=== PATIENT | female | born 1980 | race Caucasian/White ===

== ENCOUNTER 2017-10-20 11:22 | Emergency (ER) | payer OTHER, SELFPAY ==
[2017-10-20 11:33] VITALS: BP 95/72; PULSE 73; RESP 16; TEMP 37; O2SAT 100
[2017-10-20 11:44] LABS: Bilirubin Negative (Negative); Blood Trace-intact (Negative); Clarity Clear; Glucose Negative (Negative); Ketones Negative (Negative); Leukocyte Esterase Negative (Negative); Nitrite Positive (Negative); Specific Gravity 1.025 (1.005-1.025)
[2017-10-20 11:55] LABS: Bacteria Moderate HPF (Negative); C & S Indicated? Yes; Casts Negative LPF (Negative); Crystals Negative HPF (Negative); Epithelial Cells Few HPF (Negative); Mucus Moderate (Negative); RBC 0-2 (0-2); WBC 0-2 HPF (0-5)
[2017-10-20] MEDS: Normal Saline 1,000 ML 1000 ML IV (12:00)
[2017-10-20 12:05] LABS: Abs Immature Grans 0.02 k/cumm (0.0-0.09); Absolute Basophil Count 0.02 k/cumm (0.0-0.2); Absolute Eosinophil Count 0.04 k/cumm (0.0-0.7); Absolute Lymphocyte Count 1.69 k/cumm (1.2-3.4); Absolute Monocyte Count 0.51 k/cumm (0.11-0.7); Absolute Neutrophil Count 2.99 k/cumm (1.2-6.7); Basophils % 0.4; Eosinophils % 0.8; HCT 40.6 % (36.0-46.0); HGB 13.9 g/dL (12.0-15.5); Immature Grans % 0.4; Lymphocytes % 32.1; Mean Corp. HGB Concentration 34.2 g/dL (32.0-36.0); Mean Corpuscular Hemoglobin 31.8 pg (27.0-33.0); Mean Corpuscular Volume 92.9 fL (80-95); Mean Platelet Volume 10.3 fL (8.0-11.0); Monocytes % 9.7; Neutrophils % 56.6; Platelet Count 255 x1000/uL (130-400); RBC 4.37 m/cumm (4.00-5.20); RBC Distribution Width 13.6 % (11.7-14.6); White Blood Cell Count 5.27 k/cumm (4.4-10.8)
[2017-10-20 12:24] LABS: Troponin I < 0.02 ng/mL (0.00-0.06)
[2017-10-20 12:26] LABS: ALT 31 U/L (12-78); AST 24 U/L (15-37); Albumin 3.5 g/dL (3.4-5.0); Alkaline Phosphatase 106 U/L (46-116); Anion Gap 7.1 mmol/L (3-11); BUN 5 mg/dL (7-18); Bilirubin, Total 0.3 mg/dL (0.2-1.0); CO2 28.9 mmol/L (21.0-32.0); CREATININE 0.78 mg/dL (0.55-1.02); Calcium 9.1 mg/dL (8.5-10.1); Chloride 103 mmol/L (98-107); Glucose 95 mg/dL (70-100); Potassium 3.4 mmol/L (3.5-5.1); Sodium 139 mmol/L (136-145); Total Protein 7.2 g/dL (6.4-8.2)
--- NOTE | 2017-10-20 12:28 | DI.RPTCT_ITS ---
SYMPTOMS/DIAGNOSIS: RIGHT LOWER QUADRANT PAIN WITH PELVIC PAIN AND PRESSURE CT SCAN OF THE ABDOMEN AND PELVIS: CT scan of the abdomen and pelvis was performed following the uneventful administration of intravenous contrast material. There are no priors for comparison. The visualized lung bases are clear. The liver is normal in size. No evidence of a hepatic mass is seen. The gallbladder is negative by CT criteria. There is no biliary ductal dilatation. The portal and superior mesenteric veins are patent. The pancreas and peripancreatic soft tissues are unremarkable, as are the spleen and adrenal glands. The kidneys show normal and symmetric enhancement. No evidence of a solid renal mass or obstruction. The urinary bladder is intact. There are round masses seen in the uterus, most consistent with uterine fibroids. There is a 2.2 cm right adnexal cyst, likely ovarian in origin. There is a trace amount of free fluid in the cul-de-sac, which is likely physiologic. The bowel shows no evidence of obstruction or inflammation. A normal appendix is seen in the right lower quadrant (series 6 images [id number]). No pneumoperitoneum is seen. No significant abdominal or pelvic adenopathy is present. The bones are intact. IMPRESSION: 1. No CT findings to suggest acute appendicitis. 2. A 2.2 cm right adnexal cyst, likely ovarian. A trace amount of free fluid in the pelvis, which is likely physiologic. These findings were discussed with Dr. Blum of the Emergency Department on the date of the examination.
[2017-10-20] MEDS: Omnipaque 350 MG/ML 100 ML BTL 67 ML IJ (12:38)
--- NOTE | 2017-10-20 12:49 | ED.GENADUL ---
Disposition Disposition: HOME Condition: Good Instructions: Urinary Tract Infection in Women (ED) Additional Instructions: Please take the medication as directed. Please drink 8-10 cups of water per day. If you notice any worsening of your symptoms, or any new symptoms such as vomiting, diarrhea, fever, chills, shortness of breath, chest pain, numbness, weakness, or fainting , please return immediately to the emergency department for reevaluation. Please follow up with your primary care provider as soon as possible for reassessment and reevaluation. As always, it was a pleasure participating in your medical care today. Prescriptions: Cephalexin [Keflex] 500 mg PO BID #14 cap Medical Decision Making - Lab Data POC Urine Test Start: 10/20/17 11:44 Freq: .Urine Test Status: Complete Document 10/20/17 11:44 MMQ (Rec: 10/20/17 11:44 MMQ [id number]) Test(Urine)-POC POC- Test(urine) Negative Laboratory Tests 10/20/17 10/20/17 10/20/17 11:35 11:55 11:55 WBC 5.27 RBC 4.37 Hgb 13.9 Hct 40.6 MCV 92.9 MCH 31.8 MCHC 34.2 RDW 13.6 Plt Count 255 MPV 10.3 Immature Gran % 0.4 Neutrophils % 56.6 Lymphocytes % 32.1 Monocytes % 9.7 Eosinophils % 0.8 Basophils % 0.4 Absolute Neutrophils 2.99 Absolute Lymphocytes 1.69 Absolute Monocytes 0.51 Absolute Eosinophils 0.04 Absolute Basophils 0.02 Sodium 139 Potassium 3.4 L Chloride 103 Carbon Dioxide 28.9 Anion Gap 7.1 BUN 5 L Creatinine 0.78 Estimated GFR/1.73 m2 >= 60.00 Glucose 95 Calcium 9.1 Total Bilirubin 0.3 AST 24 ALT 31 Alkaline Phosphatase 106 Troponin I Total Protein 7.2 Albumin 3.5 Urine Color Yellow Urine Clarity Clear Urine pH 7.0 Ur Specific [place] 1.025 Urine Protein 100 H Urine Ketones Negative Urine Blood Trace-intact H Urine Nitrite Positive H Urine Bilirubin Negative Urine Urobilinogen 1.0 H Ur Leukocyte Esterase Negative Urine RBC 0-2 Urine WBC 0-2 Ur Epithelial Cells Few Urine Crystals Negative Urine Bacteria Moderate Urine Casts Negative Urine Mucus Moderate Ur Culture Indicated? Yes Urine Glucose Negative 10/20/17 11:55 WBC RBC Hgb Hct MCV MCH MCHC RDW Plt Count MPV Immature Gran % Neutrophils % Lymphocytes % Monocytes % Eosinophils % Basophils % Absolute Neutrophils Absolute Lymphocytes Absolute Monocytes Absolute Eosinophils Absolute Basophils Sodium Potassium Chloride Carbon Dioxide Anion Gap BUN Creatinine Estimated GFR/1.73 m2 Glucose Calcium Total Bilirubin AST ALT Alkaline Phosphatase Troponin I < 0.02 Total Protein Albumin Urine Color Urine Clarity Urine pH Ur Specific [place] Urine Protein Urine Ketones Urine Blood Urine Nitrite Urine Bilirubin Urine Urobilinogen Ur Leukocyte Esterase Urine RBC Urine WBC Ur Epithelial Cells Urine Crystals Urine Bacteria Urine Casts Urine Mucus Ur Culture Indicated? Urine Glucose - Medical Decision Making This is a pleasant 37-year-old female who presents with somewhat vague symptoms of increased urinary frequency chills, sweats, mild lightheadedness, mild bilateral flank pain, and some dizziness for the last 4 days. Point of care test is negative. Physical exam demonstrates no significant abnormalities, no evidence of significant abdominal pain on palpation. She does take oral contraceptives, but has had no vaginal discharge, bleeding or history of STDs. Patient's urinalysis appears relatively benign, with a very small amount of WBCs and RBCs, however there is also is evidence of positive nitrates. No signs of significant infection. Laboratory workup is also relatively benign. We have rehydrated patient we will reassess. EKG 12: 02 Rate 66, WV 160, QTc 419, QRS 82. No ST elevations or depressions. Inverted T-wave in V1 V2. No signs of Q waves. The remainder of the patient's laboratory workup has returned. I do feel that the urinalysis may be indicative of a mild urinary tract infection. I have been contacted by the radiologist, who is reviewed the CT scan which he states: Does show evidence of a small right ovarian cyst, small amount of physiologic free fluid, but no other acute abnormalities, no signs of appendicitis or urolithiasis. Patient will be given a prescription for antibiotic for her UTI, we have discussed red flags which returned the patient understands. I have extensively reviewed the treatment plan and discharge instructions with the patient. I have addressed all patient concerns at this time. The patient was made aware of what symptoms to monitor for that would warrant a return to the emergency department. Discussed the plan with the patient, they demonstrate verbal understanding and agreement with our assessment and plan at this time. History of Present Illness - General Chief complaint: Urinary Stated complaint: UNKNOWN Time Seen by Provider: 10/20/17 11:23 - History of Present Illness Initial comments: This is a pleasant 37-year-old female with no significant past medical history who presents today for weakness, bilateral flank pain, mild dizziness for the past 4 days. She also notes increase in urinary frequency, as well as mild chills and sweats. She denies any cough, chest pain, vomiting, diarrhea, numbness, tingling, hematochezia, melena, acholic stool, hematemesis, or hematuria. She denies any history of pyelonephritis. She does admit to previous urinary tract infections. She denies any vaginal discharge, or vaginal bleeding. She does take an oral contraceptive. She denies any history of kidney stones or family history of kidney stones. She denies any history of significant ovarian cyst. She denies any significant past surgical history. She denies any IV illicit drug use. She has no other complaints at this time. - Related Data Cephalexin [Keflex] 500 mg PO BID #14 cap 10/20/17 LORazepam [Ativan] 1 mg PO PRN 10/20/17 Lisdexamfetamine Dimesylate [Vyvanse] 50 mg PO .MON-FRI 10/20/17 Allergies Allergy/AdvReac Type Severity Reaction Status Date / Time acetaminophen Allergy Mild Hives Unverified 10/20/17 12:06 [From Telarix DayQuil] chlorpheniramine Allergy Mild Hives Unverified 10/20/17 12:06 [From BitstripsQuil] dextromethorphan Allergy Mild Hives Unverified 10/20/17 12:06 [From Telarix DayQuil] guaifenesin Allergy Mild Hives Unverified 10/20/17 12:06 [From Telarix DayQuil] phenylpropanolamine Allergy Mild Hives Unverified 10/20/17 12:06 [From BitstripsQuil] pseudoephedrine Allergy Mild Hives Unverified 10/20/17 12:06 [From BitstripsQuil] Review of Systems Other: 10 point review of systems was performed, pertinent positives and negatives are noted in the history of present illness. General Exam - Other Other exam information: 1.Const: Well-nourished, Well-developed, appearing stated age 2.Eyes: PERRL, no conjunctival injection, and symmetrical lids. 3.ENT: Atraumatic external nose and ears. Moist MM. Neck: Symmetric, trachea midline, No thyromegaly. 4.CVS: +S1/S2, No murmurs or gallops. Peripheral pulses 2+ and equal in all extremities. Brisk capillary refill in all extremities. 5.RESP: Unlabored respiratory effort. Clear to auscultation bilaterally. No wheezes rales or rhonchi 6.GI: Soft, Nondistended, No hepatosplenomegaly. No guarding or rebound. Negative obturator and psoas sign. Minimal right lower quadrant pain, no evidence of significant pelvis pain. No flank tenderness on percussion. Patient is able to jump without significant pain. Negative heel strike test. 7.MSK: Normocephalic/Atraumatic, Extremities w/o deformity or ttp No cyanosis or clubbing, Normal movement of all extremities 8.Skin: Warm, Dry. No rashes or lesions. 9.Neuro: automotive detailer II-XII grossly intact. Sensation grossly intact, no focal neurologic deficits. 10.Psych: (AAO) x3. Appropriate mood and affect Course Vital Signs - 24 hr 10/20/17 11:33 Temperature 37 C Pulse 73 Respiratory 16 Rate Blood Pressure 95/72 Pulse Oximetry 100
[2017-10-20] MEDS: Ketorolac 30 MG/ML VIAL IM (13:30)
[2017-10-20 13:50] VITALS: BP 102/75; PULSE 71; RESP 16; TEMP 37; O2SAT 100
== END 2017-10-20 13:48 | disposition home or self-care (01) ==
PROVIDERS: Physician Assistant; Emergency Provider Student in an Organized Health Care Education/Training Program
DX: N39.0 Urinary tract infection, site not specified (principal); R10.30 Lower abdominal pain, unspecified; Z87.440 Personal history of urinary (tract) infections
CPT/HCPCS: 36415; 80053; 81025; 93005; 96361; 96372; 99285; 74177; 81003; 81015; 84484; 85025; 87086; 93010; 99284; J1885; J3490

== ENCOUNTER 2018-08-30 09:59 | Emergency (ER) | payer OTHER, SELFPAY ==
--- NOTE | 2018-08-30 10:09 | NUR.NOTE ---
pt was working in her garden on Wednesday after HRs of work PT noticed thet her left shoulder had 8/10 pain that has persisted pt states that is limiting her mobility with her left shoulder and waking her up wile sleeping. pt has been taking ibuprofen and icing extremity
[2018-08-30 10:13] VITALS: BP 102/68; PULSE 73; RESP 15; TEMP 36.4; O2SAT 99
[2018-08-30] MEDS: Ibuprofen 600 MG TAB PO (10:41)
--- NOTE | 2018-08-30 10:45 | W.ED.GENAD ---
Discharge Plan Disposition Patient Disposition: HOME Condition: Fair Discharge Details Chief Complaint: Orthopedic Clinical Impression: Acute pain of left shoulder, Left shoulder strain Primary Care Provider: Sophie,Local ED Provider: Patricia Glover Home Meds and New Rx's Prescriptions: New ibuprofen 600 mg tablet 600 mg PO QID PRN (Reason: pain) Qty: 20 RF: 0 Continued lorazepam [Ativan] 1 MG tablet 1 mg PO 5XW MDD 1 PRN (Reason: Anxiety) RF: 0 Vyvanse 50 MG capsule 50 mg PO .MON-FRI RF: 0 Discharge Instructions Instructions: Shoulder Pain (ED) Additional Instructions: Encourage hydration. Tylenol and ibuprofen as needed for discomfort. You may continue with patches such as lidoderm or salonpas to help with discomfort. Stretching as discussed and domonstrated to help prevent frozen shoulder. Please call physical therapy to make follow up appointment, referral is attached. Please follow up with primary care in 2 weeks if not improving. If you develop fevers/chills, increased pain, altered sensation or other new/worsening symptoms please seek care urgently once again. Stand Alone Forms: Physical Therapy Referral Medical Decision Making Patient is a 38-year-old [id number] female presenting today with chief complaint of left shoulder pain. She reports that 4 days ago she was pulling at her house and since that time is had a left shoulder pain. She denies any trauma, did not fall onto the shoulder. Reports that the right hand was pulling the trigger on the left was the one forcefully machine moving machine forward and backward. States the pain had gradual onset after cessation of activities and has persisted since that time. She denies any altered sensation. Denies any known weakness. Has pain primarily with movement, particular with forward elevation. States she had difficulty doing overhead things tying her hair. On exam, she is indicating the area over the scapulas area of maximal discomfort. She is full range of motion, testing of the rotator cuff is normal without evidence of weakness, no evidence of deformity, discoloration or signs of trauma. Advised likely muscle overuse and strain. Advised inflammatory driven. Patient I discussed the risk and benefits of imaging. As I feel this would be low yield with an atraumatic injury, we will hold off at this time. Patient is in agreement with this. Encourage use of ibuprofen and Tylenol to help with discomfort. She was given activities and exercises to help with adhesive capsulitis but I did advise she exam from any overhead lifting. Advised heat or ice. Will place a Lidoderm patch. Advise follow-up with primary care. Patient does not currently have a primary care, I have asked her care according to help facilitate follow-up in the next 2 weeks. Referral for physical therapy was given. All of her questions and concerns were addressed and she is in agreement this plan. HPI General Mode of arrival: ambulatory. Date/Time Provider Initiated Documentation: 08/30/18 10:22. Limitations to Documentation: no limitations. Information obtained by: patient and RN notes reviewed. History of Present Illness 38 year old F presents to the emergency department with the chief complaint of left shoulder pain, described as moderate, with intensity rated at 6. Quality is described as aching, and is localized to the left and upper extremity. Patient reports no radiation. Patient started experiencing this day(s) (3) and it has been constant. Immobilization improves symptom(s), Movement worsens symptoms . Patient notes no other symptoms.. Patient did receive the following treatments prior to arrival, none Related Data Home Medications Medication Instructions Recorded Confirmed Vyvanse 50 mg PO .MON-FRI 10/20/17 08/30/18 lorazepam [Ativan] 1 mg PO 5XW PRN MDD 1 10/20/17 08/30/18 ibuprofen 600 mg PO QID PRN #20 tab 08/30/18 Previous Rx's Medication Instructions Recorded ibuprofen 600 mg PO QID PRN #20 tab 08/30/18 Allergies Allergy/AdvReac Type Severity Reaction Status Date / Time acetaminophen Allergy Mild Hives Unverified 08/30/18 10:15 [From [facility]icks DayQuil] chlorpheniramine Allergy Mild Hives Unverified 08/30/18 10:15 [From [facility]icks DayQuil] dextromethorphan Allergy Mild Hives Unverified 08/30/18 10:15 [From Vicks DayQuil] guaifenesin Allergy Mild Hives Unverified 08/30/18 10:15 [From Vicks DayQuil] phenylpropanolamine Allergy Mild Hives Unverified 08/30/18 10:15 [From Vicks DayQuil] pseudoephedrine Allergy Mild Hives Unverified 08/30/18 10:15 [From Vicks DayQuil] General Stated Complaint: Orthopedic KAREN: 3 Review of Systems Constitutional Reports as per HPI, Denies chills, Denies fever(s), Denies headache(s) and Denies weakness ENT Denies headache(s) Cardiovascular Reports as per HPI Respiratory Reports as per HPI and Denies cough Musculoskeletal Reports as per HPI and Denies tingling Integumentary/Breasts Reports as per HPI, Denies rash and Denies wounds Neurologic Reports as per HPI, Denies headache(s), Denies tingling, Denies paresthesias and Denies weakness [facility] Social History Smoking/Tobacco Use Status: Never Alcohol Intake: never Drug use: Never Substance use type: does not use Do you feel safe at home: Yes Do you feel safe in your relationship?: Yes Exam Const General: cooperative, healthy appearing, comfortable, no acute distress, well developed and well groomed Nutritional Appearance: average body habitus and well nourished Orientation: alert and awake Resp Effort & Inspection: normal respiratory effort, able to speak in complete sentences and no respiratory distress Cardio Rate: regular rate Rhythm: regular rhythm Skin General skin exam: no rashes or lesions noted Lesions: no lesions Rashes: no rashes Trauma: no lacerations or abrasions Neuro General: alert and awake Cognition: normal cognition Speech: speech normal Gait: normal gait Motor: muscle tone normal throughout Sensory Exam: no sensory deficits noted Extrem General: normal capillary refill Right upper extremity: normal to inspection and full ROM Left upper extremity: normal capillary refill, no joint enlargement, shoulder/upper arm Details: tenderness Location: of the scapula; not of the A-C joint, not of the proximal humerus, not of the mid-shaft humerus, not over the coracoid process, not over the biceps tendon, not over the subacromial bursa and not over the deltoid bursa, axillary nerve sensory function normal and normal ROM (discomfort with full FE, equal to contralateral side); no abrasions, no lacerations, no ecchymosis, no crepitus, no foreign bodies, no penetrating wound, no deformity and no unsual warmth, elbow/forearm Details: normal to inspection and normal ROM; no tenderness, wrist Details: normal to inspection and normal ROM; no tenderness and no swelling and hand Details: normal to inspection (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) Psych Appearance: grossly normal and well kempt Mental Status: mental status grossly normal Speech and Movement: speech and movement normal Course Vital Signs Temperature 36.4 C L 08/30/18 10:13 Pulse 73 08/30/18 10:13 Respiratory Rate 15 08/30/18 10:13 Blood Pressure 102/68 08/30/18 10:13 Pulse Oximetry 99 08/30/18 10:13 Temperature 36.4 C L 08/30/18 10:13 Temperature Source Skin 08/30/18 10:13 Pulse 73 08/30/18 10:13 Respiratory Rate 15 08/30/18 10:13 Respiratory Effort 08/30/18 10:17 Blood Pressure 102/68 08/30/18 10:13 Blood Pressure Position Sitting 08/30/18 10:13 Pulse Oximetry 99 08/30/18 10:13 Oxygen Delivery Method Room Air 08/30/18 10:13 Oxygen Flow Rate 0 08/30/18 10:13 Pain Level 6 08/30/18 10:13
--- NOTE | 2018-08-30 11:08 | ED.GENADUL_ITS ---
Discharge Plan Disposition Patient Disposition: HOME Condition: Fair Discharge Details Chief Complaint: Orthopedic Clinical Impression: Acute pain of left shoulder, Left shoulder strain Primary Care Provider: Sophie,Local ED Provider: Patricia Glover Home Meds and New Rx's Prescriptions: New ibuprofen 600 mg tablet 600 mg PO QID PRN (Reason: pain) Qty: 20 RF: 0 Continued lorazepam [Ativan] 1 MG tablet 1 mg PO 5XW MDD 1 PRN (Reason: Anxiety) RF: 0 Vyvanse 50 MG capsule 50 mg PO .MON-FRI RF: 0 Discharge Instructions Instructions: Shoulder Pain (ED) Additional Instructions: Encourage hydration. Tylenol and ibuprofen as needed for discomfort. You may continue with patches such as lidoderm or salonpas to help with discomfort. Stretching as discussed and domonstrated to help prevent frozen shoulder. Please call physical therapy to make follow up appointment, referral is attached. Please follow up with primary care in 2 weeks if not improving. If you develop fevers/chills, increased pain, altered sensation or other new/worsening symptoms please seek care urgently once again. Stand Alone Forms: Physical Therapy Referral Medical Decision Making Patient is a 38-year-old [id number] female presenting today with chief complaint of left shoulder pain. She reports that 4 days ago she was pulling at her house and since that time is had a left shoulder pain. She denies any trauma, did not fall onto the shoulder. Reports that the right hand was pulling the trigger on the left was the one forcefully machine moving machine forward and backward. States the pain had gradual onset after cessation of activities and has persisted since that time. She denies any altered sensation. Denies any known weakness. Has pain primarily with movement, particular with forward elevation. States she had difficulty doing overhead things tying her hair. On exam, she is indicating the area over the scapulas area of maximal discomfort. She is full range of motion, testing of the rotator cuff is normal without evidence of weakness, no evidence of deformity, discoloration or signs of trauma. Advised likely muscle overuse and strain. Advised inflammatory driven. Patient I discussed the risk and benefits of imaging. As I feel this would be low yield with an atraumatic injury, we will hold off at this time. Patient is in agreement with this. Encourage use of ibuprofen and Tylenol to help with discomfort. She was given activities and exercises to help with adhesive capsulitis but I did advise she exam from any overhead lifting. Advised heat or ice. Will place a Lidoderm patch. Advise follow-up with primary care. Patient does not currently have a primary care, I have asked her care according to help facilitate follow-up in the next 2 weeks. Referral for physical therapy was given. All of her questions and concerns were addressed and she is in agreement this plan. HPI General Mode of arrival: ambulatory . Date/Time Provider Initiated Documentation: 08/30/18 10:22 . Limitations to Documentation: no limitations . Information obtained by: patient and RN notes reviewed . History of Present Illness 38 year old F presents to the emergency department with the chief complaint of left shoulder pain, described as moderate, with intensity rated at 6. Quality is described as aching, and is localized to the left and upper extremity. Patient reports no radiation. Patient started experiencing this day(s) (3) and it has been constant. Immobilization improves symptom(s), Movement worsens symptoms . Patient notes no other symptoms.. Patient did receive the following treatments prior to arrival, none Related Data Home Medications Medication Instructions Recorded Confirmed Vyvanse 50 mg PO .MON-FRI 10/20/17 08/30/18 lorazepam [Ativan] 1 mg PO 5XW PRN MDD 1 10/20/17 08/30/18 ibuprofen 600 mg PO QID PRN #20 tab 08/30/18 Previous Rx's Medication Instructions Recorded ibuprofen 600 mg PO QID PRN #20 tab 08/30/18 Allergies Allergy/AdvReac Type Severity Reaction Status Date / Time acetaminophen Allergy Mild Hives Unverified 08/30/18 10:15 [From Vicks DayQuil] chlorpheniramine Allergy Mild Hives Unverified 08/30/18 10:15 [From Vicks DayQuil] dextromethorphan Allergy Mild Hives Unverified 08/30/18 10:15 [From Vicks DayQuil] guaifenesin Allergy Mild Hives Unverified 08/30/18 10:15 [From Vicks DayQuil] phenylpropanolamine Allergy Mild Hives Unverified 08/30/18 10:15 [From Vicks DayQuil] pseudoephedrine Allergy Mild Hives Unverified 08/30/18 10:15 [From Vicks DayQuil] General Stated Complaint: Orthopedic KAREN: 3 Review of Systems Constitutional Reports as per HPI, Denies chills, Denies fever(s), Denies headache(s) and Denies weakness ENT Denies headache(s) Cardiovascular Reports as per HPI Respiratory Reports as per HPI and Denies cough Musculoskeletal Reports as per HPI and Denies tingling Integumentary/Breasts Reports as per HPI, Denies rash and Denies wounds Neurologic Reports as per HPI, Denies headache(s), Denies tingling, Denies paresthesias and Denies weakness [facility] Social History Smoking/Tobacco Use Status: Never Alcohol Intake: never Drug use: Never Substance use type: does not use Do you feel safe at home: Yes Do you feel safe in your relationship?: Yes Exam Const General: cooperative, healthy appearing, comfortable, no acute distress, well developed and well groomed Nutritional Appearance: average body habitus and well nourished Orientation: alert and awake Resp Effort & Inspection: normal respiratory effort, able to speak in complete sentences and no respiratory distress Cardio Rate: regular rate Rhythm: regular rhythm Skin General skin exam: no rashes or lesions noted Lesions: no lesions Rashes: no rashes Trauma: no lacerations or abrasions Neuro General: alert and awake Cognition: normal cognition Speech: speech normal Gait: normal gait Motor: muscle tone normal throughout Sensory Exam: no sensory deficits noted Extrem General: normal capillary refill Right upper extremity: normal to inspection and full ROM Left upper extremity: normal capillary refill, no joint enlargement, shoulder/upper arm Details: tenderness Location: of the scapula; not of the A-C joint, not of the proximal humerus, not of the mid-shaft humerus, not over the coracoid process, not over the biceps tendon, not over the subacromial bursa and not over the deltoid bursa, axillary nerve sensory function normal and normal ROM (discomfort with full FE, equal to contralateral side); no abrasions, no lacerations, no ecchymosis, no crepitus, no foreign bodies, no penetrating wound, no deformity and no unsual warmth, elbow/forearm Details: normal to inspection and normal ROM; no tenderness, wrist Details: normal to inspection and normal ROM; no tenderness and no swelling and hand Details: normal to inspection (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) Psych Appearance: grossly normal and well kempt Mental Status: mental status grossly normal Speech and Movement: speech and movement normal Course Vital Signs Temperature 36.4 C L 08/30/18 10:13 Pulse 73 08/30/18 10:13 Respiratory Rate 15 08/30/18 10:13 Blood Pressure 102/68 08/30/18 10:13 Pulse Oximetry 99 08/30/18 10:13 Temperature 36.4 C L 08/30/18 10:13 Temperature Source Skin 08/30/18 10:13 Pulse 73 08/30/18 10:13 Respiratory Rate 15 08/30/18 10:13 Respiratory Effort 08/30/18 10:17 Blood Pressure 102/68 08/30/18 10:13 Blood Pressure Position Sitting 08/30/18 10:13 Pulse Oximetry 99 08/30/18 10:13 Oxygen Delivery Method Room Air 08/30/18 10:13 Oxygen Flow Rate 0 08/30/18 10:13 Pain Level 6 08/30/18 10:13
--- NOTE | 2018-08-30 14:02 | NUR.NOTE ---
Nursing Note: Referral faxed to [facility] for follow up. Julien Hernandez is special investigation unit investigator for telephone call. Linda Gonsales.
[2018-08-30 14:20] VITALS: BP 102/68; PULSE 73; RESP 15; TEMP 36.4; O2SAT 99
== END 2018-08-30 11:23 | disposition home or self-care (01) ==
PROVIDERS: Emergency Provider Physician Assistant
DX: S45.912A Laceration of unspecified blood vessel at shoulder and upper arm level, left arm, initial encounter (principal); X50.3XXA Overexertion from repetitive movements, initial encounter
CPT/HCPCS: 99283; 99282

== ENCOUNTER 2018-11-30 14:35 | Outpatient (CLI) | payer OTHER, SELFPAY ==
--- NOTE | 2018-11-30 14:39 | DI.RAD_ITS ---
SYMPTOMS/DIAGNOSIS: BILATERAL JOINT PAIN, M53.3 SACROILIAC JOINTS: There is no abnormal SI joint widening or areas of bony erosion or sclerosis. The hip joint spaces are well maintained. The visualized portions of the lumbar spine appear normal. IMPRESSION: Negative SI joints.
== END 2018-11-30 14:55 ==
PROVIDERS: Visit Provider Family Medicine
DX: M53.3 Sacrococcygeal disorders, not elsewhere classified (principal)
CPT/HCPCS: 72202

== ENCOUNTER 2018-12-09 11:46 | Outpatient (CLI) | payer OTHER, SELFPAY ==
--- NOTE | 2018-12-09 15:45 | DI.RAD_ITS ---
EXAM: XR HAND RT COMPLETE INDICATION: PAIN M79.644. COMPARISON: No exams were available for comparison TECHNIQUE: 2D digital imaging was performed. FINDINGS: The bony structures are normally mineralized. Joint spaces intact. There is no evidence of a fracture or dislocation.
== END 2018-12-09 12:06 ==
PROVIDERS: PCP Nurse Practitioner Family; Visit Provider Nurse Practitioner Family
DX: M79.641 Pain in right hand (principal)
CPT/HCPCS: 73130

== ENCOUNTER 2018-12-09 15:31 | Outpatient (REF) | payer OTHER, SELFPAY ==
[2018-12-09 19:02] LABS: ALT 11 U/L (14-59); AST 12 U/L (15-37); Albumin 4.8 g/dL (3.4-5.0); Alkaline Phosphatase 92 U/L (46-116); Anion Gap 13.6 mmol/L (3-11); BUN 8 mg/dL (7-18); Bilirubin, Total 0.4 mg/dL (0.2-1.0); CO2 25.4 mmol/L (21.0-32.0); CREATININE 0.67 mg/dL (0.55-1.02); Calcium 9.6 mg/dL (8.5-10.1); Chloride 101 mmol/L (98-107); Glucose 85 mg/dL (70-100); Potassium 3.6 mmol/L (3.5-5.1); Sodium 140 mmol/L (136-145); Total Protein 8.3 g/dL (6.4-8.2)
[2018-12-09 19:06] LABS: HCT 43.4 % (36.0-46.0); HGB 14.6 g/dL (12.0-15.5); Mean Corp. HGB Concentration 33.6 g/dL (32.0-36.0); Mean Corpuscular Hemoglobin 31.7 pg (27.0-33.0); Mean Corpuscular Volume 94.3 fL (80-95); Mean Platelet Volume 10.7 fL (8.0-11.0); Platelet Count 394 x1000/uL (130-400); RBC Distribution Width 13.6 % (11.7-14.6); White Blood Cell Count 11.79 k/cumm (4.4-10.8)
== END 2018-12-09 15:51 ==
LOC: NCHCN 15:31
PROVIDERS: PCP Nurse Practitioner Family; Visit Provider Nurse Practitioner Family
DX: E16.2 Hypoglycemia, unspecified (principal)
CPT/HCPCS: 80053; 85027

== ENCOUNTER 2019-01-17 14:32 | Outpatient (REF) | payer OTHER, SELFPAY ==
[2019-01-17 19:32] LABS: HCT 44.8 % (36.0-46.0); HGB 15.5 g/dL (12.0-15.5); Mean Corp. HGB Concentration 34.6 g/dL (32.0-36.0); Mean Corpuscular Hemoglobin 31.8 pg (27.0-33.0); Mean Corpuscular Volume 91.8 fL (80-95); Mean Platelet Volume 10.6 fL (8.0-11.0); Platelet Count 394 x1000/uL (130-400); RBC 4.88 m/cumm (4.00-5.20); RBC Distribution Width 13.2 % (11.7-14.6); White Blood Cell Count 12.94 k/cumm (4.4-10.8)
[2019-01-19 13:44] LABS: Beta-HCG, Quant, Tumor Marker 43359 IU/L
== END 2019-01-17 14:52 ==
LOC: NCHCN 14:32
PROVIDERS: PCP Nurse Practitioner Family; Visit Provider Nurse Practitioner Family
DX: Z32.01 Encounter for pregnancy test, result positive (principal); R11.0 Nausea; Z00.00 Encounter for general adult medical examination without abnormal findings
CPT/HCPCS: 85027; 84702

== ENCOUNTER 2019-02-20 14:22 | Outpatient (CLI) | payer OTHER, SELFPAY ==
[2019-02-20 15:08] LABS: Abs Immature Grans 0.07 k/cumm (0.0-0.09); Absolute Basophil Count 0.02 k/cumm (0.0-0.2); Absolute Eosinophil Count 0.22 k/cumm (0.0-0.7); Absolute Monocyte Count 1.03 k/cumm (0.11-0.7); Basophils % 0.1; Eosinophils % 1.4; HCT 38.6 % (36.0-46.0); HGB 13.5 g/dL (12.0-15.5); Immature Grans % 0.4; Lymphocytes % 18.9; Mean Corpuscular Hemoglobin 32.3 pg (27.0-33.0); Mean Corpuscular Volume 92.3 fL (80-95); Mean Platelet Volume 10.1 fL (8.0-11.0); Monocytes % 6.5; Neutrophils % 72.7; Platelet Count 304 x1000/uL (130-400); RBC 4.18 m/cumm (4.00-5.20); RBC Distribution Width 13.3 % (11.7-14.6); White Blood Cell Count 15.89 k/cumm (4.4-10.8)
[2019-02-20 15:13] LABS: Absolute Neutrophil Count 11.55 k/cumm (1.2-6.7)
[2019-02-21 10:09] LABS: Hepatitis B Surface Ag Negative (Negative); Hepatitis C Ab w Rflx HCV PCR Negative (Negative)
[2019-02-21 10:26] LABS: Rubella IgG Ab (UVM) Positive (See Note); Varicella IgG Antibody Positive (See Note)
[2019-02-21 12:02] LABS: HIV-1/2 Ag & Ab Screen Negative (Negative)
[2019-02-21 15:40] LABS: Syphilis Total Ab w/Reflex Nonreactive (Nonreactive)
== END 2019-02-20 14:42 ==
PROVIDERS: PCP Nurse Practitioner Family; Visit Provider Advanced Practice Midwife
DX: Z34.91 Encounter for supervision of normal pregnancy, unspecified, first trimester (principal); Z11.4 Encounter for screening for human immunodeficiency virus [HIV]; Z11.59 Encounter for screening for other viral diseases; Z01.84 Encounter for antibody response examination
CPT/HCPCS: 36415; 86787; 86803; 86850; 86900; 86901; 87340; 87389; 84443; 85025; 86762; 86780

== ENCOUNTER 2019-02-20 14:59 | Outpatient (REF) | payer OTHER, SELFPAY ==
[2019-02-20 16:11] LABS: *AMPHETAMINES SCREEN URINE Negative (Negative); *BARBITURATES SCREEN URINE Negative (Negative); *BENZODIAZEPINES SCREEN URINE Negative (Negative); Cannabinoids THC Negative (Negative); Cocaine Screen,Urine Negative (Negative); METHADONE URINE SCREEN Negative (Negative); OPIATES URINE SCREEN Negative (Negative)
[2019-02-20 16:14] LABS: Tricyclic Antidepressants Negative (Negative)
[2019-02-21 13:17] LABS: Chlamydia Result Negative (Negative)
[2019-02-21 15:22] LABS: GC Result Negative (Negative)
[2019-02-24 11:42] LABS: Buprenorphine Negative; Norbuprenorphine Negative
== END 2019-02-20 15:19 ==
LOC: LBN 14:59
PROVIDERS: PCP Nurse Practitioner Family; Visit Provider Advanced Practice Midwife
DX: Z34.91 Encounter for supervision of normal pregnancy, unspecified, first trimester (principal); Z11.3 Encounter for screening for infections with a predominantly sexual mode of transmission
CPT/HCPCS: 80307; 87491; 87591; 87086

== ENCOUNTER 2019-02-20 15:41 | Outpatient (REF) | payer OTHER, SELFPAY ==
--- NOTE | 2019-02-20 14:00 | PAPFT_PTH ---
PATIENT: NAPOLEON FOX LOC: [facility] U#:[id number] AGE/SX: 38/F ROOM: RE02/20/[address]: Clair Harry : 1980 BED: DIS: 02/20/2019 SPEC #: [id number] RECD: 02/20/19 18:10 STATUS: AYUSH REShelly #: [id number] BENNY: 02/20/19 14:[address]: Clair Harry DEPT: [facility] Cytology RECD BY: Miranda Lee ENTERED: 02/20/19 18:10 SP TYPE: PAPFT OTHR DR: Gregor Farley Tissues: 1 - CX/ENDOCX FOR PAP SMEARS Procedures: PAP THIN PREP/UVM Screening HPV DNA PROBE Comments: [id number]
== END 2019-02-20 16:01 ==
LOC: LBN 15:41
PROVIDERS: PCP Nurse Practitioner Family; Visit Provider Advanced Practice Midwife
DX: Z12.4 Encounter for screening for malignant neoplasm of cervix (principal); Z11.51 Encounter for screening for human papillomavirus (HPV)
CPT/HCPCS: 88142; 87624

== ENCOUNTER 2019-02-24 11:51 | Outpatient (CLI) | payer OTHER, SELFPAY ==
--- NOTE | 2019-02-24 00:41 | DI.US_ITS ---
EXAM: US OB 1ST TRIMESTER CLINICAL HISTORY: MASS IN GESTATIONAL SAC Z34.90 SUPERVISION NORMAL TECHNIQUE: Ultrasound performed using standard protocol. COMPARISON: No exams were available for comparison FINDINGS: There is a single living intrauterine gestation. Estimated sonographic age is 11 weeks 4 days. Feta l heart rate is 160 beats per minute. Amniotic fluid appears grossly unremarkable. No evidence of a mass within the gestational sac is noted. Note is made of a 1.5 centimeter uterine fibroid. The fi broid does not impinge upon the gestational sac. IMPRESSION: 1. Single living intrauterine gestation. Estimated sonographic age is 11 weeks 4 days. 2. No evidence of mass within the gestational sac. 3. Uterine fibroid.
== END 2019-02-24 12:11 ==
PROVIDERS: PCP Nurse Practitioner Family; Visit Provider Advanced Practice Midwife
DX: Z34.91 Encounter for supervision of normal pregnancy, unspecified, first trimester (principal); D25.9 Leiomyoma of uterus, unspecified
CPT/HCPCS: 76801

== ENCOUNTER 2019-03-01 09:53 | Outpatient (CLI) | payer OTHER, SELFPAY ==
[2019-03-01 10:44] LABS: Kit/Specimen SENT
[2019-03-07 12:45] LABS: Result Summary NEGATIVE; Specimen WB Whole Blood
[2019-03-07 17:09] LABS: Specimen WB Whole Blood
== END 2019-03-01 10:13 ==
PROVIDERS: PCP Nurse Practitioner Family; Referring Provider Nurse Practitioner Family; Visit Provider Advanced Practice Midwife
DX: O09.511 Supervision of elderly primigravida, first trimester; Z36.89 Encounter for other specified antenatal screening
CPT/HCPCS: 36415; 81329; 81220

== ENCOUNTER 2019-04-17 01:35 | Outpatient (CLI) | payer OTHER, SELFPAY ==
--- NOTE | 2019-04-17 12:40 | DI.US_ITS ---
EXAM: US OB 2-3 TRIMESTER CLINICAL HISTORY: routine [facility] Z34.90 SUPERVISION NORMAL TECHNIQUE: Ultrasound performed using standard protocol. COMPARISON: US OB 1ST TRIMESTER from 02/25/2019 US OB 1ST TRIMESTER from 02/25/2019 FINDINGS: Fetus is in cephalic position. The placenta is anterior. The tip of the placenta lies 2.7 cm from t he internal os. Two anterior uterine fibroids are seen measuring 2.2 and 1.8 cm in greatest dimensio n. Biometric measurements correspond to 19 weeks 3 days. The amniotic fluid appears visually normal . No abnormalities are identified. IMPRESSION: survey is within normal limits. Small uterine fibroids are noted.
== END 2019-04-17 01:55 ==
PROVIDERS: PCP Nurse Practitioner Family; Visit Provider Advanced Practice Midwife
DX: Z34.92 Encounter for supervision of normal pregnancy, unspecified, second trimester (principal); Z3A.19 19 weeks gestation of pregnancy; D25.9 Leiomyoma of uterus, unspecified
CPT/HCPCS: 76805

== ENCOUNTER 2019-05-15 14:56 | Outpatient (CLI) | payer OTHER, SELFPAY ==
[2019-05-25 15:58] LABS: Result Summary NEGATIVE; Specimen WB Whole Blood
== END 2019-05-15 15:16 ==
PROVIDERS: PCP Nurse Practitioner Family; Visit Provider Advanced Practice Midwife
DX: Z34.92 Encounter for supervision of normal pregnancy, unspecified, second trimester (principal)
CPT/HCPCS: 36415; 86652

== ENCOUNTER 2019-06-26 01:10 | Outpatient (CLI) | payer OTHER, SELFPAY ==
--- NOTE | 2019-06-26 06:45 | DI.US_ITS ---
EXAM: US OB F/U FACIAL/LVOT/RVOT CLINICAL HISTORY: F/U PLACENTA LOCATION,LOW LYING, 044.42 TECHNIQUE: Ultrasound performed using standard protocol. COMPARISON: US OB 2-3 TRIMESTER from 04/17/2019 FINDINGS: Ob ultrasound was performed utilizing limited protocol to follow low lying placenta identified on carlos or study of April 17. Predicted gestational age today is 28 weeks 2 days. Fetus is in breech presentation. cardiac activity noted at a rate of 145 BPM. Placental location is anterior, the tip of the placenta is 4.6 cm from internal os, as compared to 2. 7 cm above the internal os on prior study of April 17. There is visually a normal quantity of amniotic fluid. IMPRESSION: Previously noted low lying placenta seen on examination of April 17 now lies near the upper limit s of normal for placental to os distance. No placenta previa identified. DATA REPOSITORY:
== END 2019-06-26 01:30 ==
PROVIDERS: PCP Nurse Practitioner Family; Visit Provider Advanced Practice Midwife
DX: O44.43 Low lying placenta NOS or without hemorrhage, third trimester (principal); Z3A.28 28 weeks gestation of pregnancy
CPT/HCPCS: 76815

== ENCOUNTER 2019-06-26 01:52 | Outpatient (CLI) | payer OTHER, SELFPAY ==
[2019-06-26 08:34] LABS: HCT 38.7 % (36.0-46.0); HGB 13.6 g/dL (12.0-15.5); Mean Corp. HGB Concentration 35.1 g/dL (32.0-36.0); Mean Corpuscular Hemoglobin 32.3 pg (27.0-33.0); Mean Corpuscular Volume 91.9 fL (80-95); Mean Platelet Volume 10.6 fL (8.0-11.0); Platelet Count 258 x1000/uL (130-400); RBC 4.21 m/cumm (4.00-5.20); RBC Distribution Width 13.5 % (11.7-14.6); White Blood Cell Count 14.84 k/cumm (4.4-10.8)
[2019-06-26 08:43] LABS: Glucose,1 Hr (Glucola) 67 mg/dL (80-140)
== END 2019-06-26 02:12 ==
PROVIDERS: Advanced Practice Midwife; PCP Nurse Practitioner Family; Referring Provider Nurse Practitioner Family; Visit Provider Advanced Practice Midwife
DX: Z34.93 Encounter for supervision of normal pregnancy, unspecified, third trimester (principal)
CPT/HCPCS: 36415; 82950; 85027

== ENCOUNTER 2019-07-02 20:38 | Outpatient (CLI) | payer OTHER, SELFPAY | END 2019-07-02 20:58 | PROVIDERS: PCP Nurse Practitioner Family; Visit Provider Advanced Practice Midwife | DX: R69 Illness, unspecified (principal) ==

== ENCOUNTER 2019-07-03 07:17 | Outpatient (CLI) | payer OTHER, SELFPAY ==
[2019-07-03 10:00] LABS: ALT 20 U/L (14-59); AST 19 U/L (15-37); Albumin 2.8 g/dL (3.4-5.0); Alkaline Phosphatase 136 U/L (46-116); Bilirubin, Direct 0.07 mg/dL (0.00-0.20); Bilirubin, Total 0.3 mg/dL (0.2-1.0); Total Protein 7.1 g/dL (6.4-8.2)
[2019-07-03 10:03] LABS: ALT 19 U/L (14-59); AST 19 U/L (15-37); Albumin 2.8 g/dL (3.4-5.0); Alkaline Phosphatase 138 U/L (46-116); Anion Gap 6.2 mmol/L (3-11); BUN 4 mg/dL (7-18); Bilirubin, Total 0.3 mg/dL (0.2-1.0); CO2 27.8 mmol/L (21.0-32.0); CREATININE 0.51 mg/dL (0.55-1.02); Chloride 104 mmol/L (98-107); Glucose 80 mg/dL (74-106); Potassium 3.7 mmol/L (3.5-5.1); Sodium 138 mmol/L (136-145)
[2019-07-04 13:22] LABS: Bile Acids, Total 13 mcmol/L (<=10)
== END 2019-07-03 07:37 ==
PROVIDERS: Advanced Practice Midwife; PCP Nurse Practitioner Family; Visit Provider Advanced Practice Midwife
DX: L29.9 Pruritus, unspecified (principal); Z3A.37 37 weeks gestation of pregnancy
CPT/HCPCS: 80053; 80076; 59025; 82239

== ENCOUNTER 2019-07-17 11:04 | Outpatient (REF) | payer OTHER, SELFPAY ==
[2019-07-17 12:50] LABS: ALT 17 U/L (14-59); AST 22 U/L (15-37); Albumin 2.8 g/dL (3.4-5.0); Alkaline Phosphatase 160 U/L (46-116); Bilirubin, Direct 0.08 mg/dL (0.00-0.20); Bilirubin, Total 0.3 mg/dL (0.2-1.0); Total Protein 6.3 g/dL (6.4-8.2)
[2019-07-18 16:50] LABS: Bile Acids, Total 16 mcmol/L (<=10)
== END 2019-07-17 11:24 ==
LOC: LBN 11:04
PROVIDERS: PCP Nurse Practitioner Family; Visit Provider Advanced Practice Midwife
DX: O26.613 Liver and biliary tract disorders in pregnancy, third trimester (principal); K83.1 Obstruction of bile duct
CPT/HCPCS: 80076; 82239

== ENCOUNTER 2019-07-24 07:34 | Outpatient (CLI) | payer OTHER, SELFPAY | END 2019-07-24 07:54 | PROVIDERS: PCP Nurse Practitioner Family; Visit Provider Advanced Practice Midwife | DX: O26.613 Liver and biliary tract disorders in pregnancy, third trimester (principal); K83.1 Obstruction of bile duct; Z3A.32 32 weeks gestation of pregnancy | CPT/HCPCS: 59025 ==

== ENCOUNTER 2019-07-31 07:19 | Outpatient (CLI) | payer OTHER, SELFPAY ==
[2019-07-31 09:52] LABS: ALT 17 U/L (14-59); AST 15 U/L (15-37); Albumin 2.5 g/dL (3.4-5.0); Alkaline Phosphatase 157 U/L (46-116); Bilirubin, Direct 0.07 mg/dL (0.00-0.20); Bilirubin, Total 0.2 mg/dL (0.2-1.0); Total Protein 6.4 g/dL (6.4-8.2)
[2019-08-01 20:03] LABS: Bile Acids, Total 18 mcmol/L (<=10)
== END 2019-07-31 07:39 ==
PROVIDERS: Advanced Practice Midwife; PCP Nurse Practitioner Family; Visit Provider Advanced Practice Midwife
DX: O26.613 Liver and biliary tract disorders in pregnancy, third trimester (principal); K83.1 Obstruction of bile duct; Z3A.33 33 weeks gestation of pregnancy
CPT/HCPCS: 36415; 80076; 59025; 82239

== ENCOUNTER 2019-08-07 09:19 | Outpatient (CLI) | payer OTHER, SELFPAY | END 2019-08-07 09:39 | PROVIDERS: PCP Nurse Practitioner Family; Visit Provider Advanced Practice Midwife | DX: O26.613 Liver and biliary tract disorders in pregnancy, third trimester (principal); K83.1 Obstruction of bile duct; O32.1XX0 Maternal care for breech presentation, not applicable or unspecified; Z3A.34 34 weeks gestation of pregnancy | CPT/HCPCS: 59025 ==

== ENCOUNTER 2019-08-15 01:07 | Outpatient (CLI) | payer OTHER, SELFPAY ==
--- NOTE | 2019-08-15 06:45 | DI.US_ITS ---
EXAM: US OB TANIA WEIGHT CLINICAL HISTORY: 35 wks, weight and fluid,O26.619,CHOLESTASIS,K83.1. COMPARISON: US US OB F/U FACIAL/LVOT/RVOT from 06/26/2019 TECHNIQUE: Transabdominal obstetrical ultrasound performed. FINDINGS: Sonographic images demonstrate a single intrauterine gestation in breech position. Sonographically assessed gestational age: 36 weeks 6 days Estimated date of delivery based on this ultrasound is: 06 September 2019 Estimated date of delivery based upon LMP: 35 weeks 3 days. EFW: 2851 grams, 68th percentile BPD: 89 millimeters, 36 weeks 1 day HC: 344 millimeters, 39 weeks 5 days AC: 317 millimeters, 35 weeks 5 days FL: 69 millimeters, 35 weeks 4 days heart rate motion is Dopplered at: 173 bpm. Amniotic fluid index: 9.1 cm. IMPRESSION: Single live intrauterine gestation as above. DATA REPOSITORY:
== END 2019-08-15 01:27 ==
PROVIDERS: PCP Nurse Practitioner Family; Visit Provider Advanced Practice Midwife
DX: O26.613 Liver and biliary tract disorders in pregnancy, third trimester (principal); Z3A.35 35 weeks gestation of pregnancy
CPT/HCPCS: 76816

== ENCOUNTER 2019-08-15 08:30 | Outpatient (CLI) | payer OTHER, SELFPAY ==
[2019-08-15 10:36] LABS: HCT 42.5 % (36.0-46.0); Mean Corp. HGB Concentration 35.3 g/dL (32.0-36.0); Mean Corpuscular Hemoglobin 32.1 pg (27.0-33.0); Platelet Count 214 x1000/uL (130-400); RBC 4.67 m/cumm (4.00-5.20); RBC Distribution Width 14.4 % (11.7-14.6); White Blood Cell Count 13.39 k/cumm (4.4-10.8)
[2019-08-15 10:52] LABS: Uric Acid 5.3 mg/dL (2.6-6.0)
[2019-08-15 11:01] LABS: ALT 19 U/L (14-59); AST 23 U/L (15-37); Albumin 2.7 g/dL (3.4-5.0); Alkaline Phosphatase 199 U/L (46-116); Bilirubin, Direct 0.11 mg/dL (0.00-0.20); Bilirubin, Total 0.4 mg/dL (0.2-1.0)
[2019-08-15 11:10] LABS: COMMENT (LAB VIEW ONLY) < 13.00 mg/dL; PROTEIN < 6.0 mg/dL
[2019-08-16 21:37] LABS: Bile Acids, Total 19 mcmol/L (<=10)
== END 2019-08-15 08:50 ==
PROVIDERS: PCP Nurse Practitioner Family; Visit Provider Advanced Practice Midwife
DX: O26.613 Liver and biliary tract disorders in pregnancy, third trimester (principal); K83.1 Obstruction of bile duct; Z3A.38 38 weeks gestation of pregnancy
CPT/HCPCS: 36415; 80076; 85027; 59025; 82239; 82565; 84156; 84550

== ENCOUNTER 2019-08-18 17:06 | Outpatient (REF) | payer OTHER, SELFPAY ==
[2019-08-18 17:51] LABS: *AMPHETAMINES SCREEN URINE POSITIVE (Negative); *BARBITURATES SCREEN URINE Negative (Negative); *BENZODIAZEPINES SCREEN URINE Negative (Negative); Cannabinoids THC Negative (Negative); Cocaine Screen,Urine Negative (Negative); METHADONE URINE SCREEN Negative (Negative); OPIATES URINE SCREEN Negative (Negative)
[2019-08-18 18:05] LABS: Tricyclic Antidepressants Negative (Negative)
[2019-08-27 06:40] LABS: Buprenorphine Negative; Norbuprenorphine Negative
== END 2019-08-18 17:26 ==
LOC: LBN 17:06
PROVIDERS: PCP Nurse Practitioner Family; Visit Provider Advanced Practice Midwife
DX: Z34.93 Encounter for supervision of normal pregnancy, unspecified, third trimester (principal); Z36.85 Encounter for antenatal screening for Streptococcus B
CPT/HCPCS: 80307; 87081

== ENCOUNTER 2019-08-19 14:17 | Outpatient (CLI) | payer OTHER, SELFPAY ==
[2019-08-19] MEDS: Betamet Acet/Betamet Na Ph Inj. 30 MG/5 ML 12 MG IM (16:27)
== END 2019-08-19 14:37 ==
PROVIDERS: PCP Nurse Practitioner Family; Visit Provider Advanced Practice Midwife
DX: O26.893 Other specified pregnancy related conditions, third trimester (principal)
CPT/HCPCS: 96372; J0702

== ENCOUNTER 2019-08-21 07:50 | Outpatient (CLI) | payer OTHER, SELFPAY ==
[2019-08-21] MEDS: Lactated Ringers 1,000 ML 125 ML IV (10:30)
[2019-08-21 10:57] LABS: HCT 37.6 % (36.0-46.0); HGB 12.8 g/dL (12.0-15.5); Mean Corpuscular Hemoglobin 31.7 pg (27.0-33.0); Mean Corpuscular Volume 93.1 fL (80-95); Mean Platelet Volume 12.3 fL (8.0-11.0); Platelet Count 200 x1000/uL (130-400); RBC 4.04 m/cumm (4.00-5.20); RBC Distribution Width 14.4 % (11.7-14.6); White Blood Cell Count 15.17 k/cumm (4.4-10.8)
[2019-08-21] MEDS: Terbutaline 1 MG/ML VIAL 0.25 MG SC (13:19)
--- NOTE | 2019-08-21 14:23 | W.PM.PROGNOT ---
Date of Service Date of service: 08/21/19 Time of Service: 14:23 Exam Narrative Exam Narrative: Patient was seen in labor and delivery today after having normal vital signs and a reactive nonstress test for external cephalic version. Risk and benefit the procedure was explained to the patient and consent was obtained. Const General: cooperative and healthy appearing GI Inspection: normal to inspection Other: Gravid at 36 weeks Objective Objective Clinical Data: Abnormal lab results 08/21/19 Range/Units 10:40 WBC 15.17 H (4.4-10.8) k/cumm MPV 12.3 H (8.0-11.0) fL Intake & Output 08/20/19 08/21/19 08/21/19 23:59 11:59 23:59 Weight 158 lb Laboratory Results WBC 15.17 k/cumm (4.4-10.8) H 08/21/19 10:40 RBC 4.04 m/cumm (4.00-5.20) 08/21/19 10:40 Hgb 12.8 g/dL (12.0-15.5) 08/21/19 10:40 Hct 37.6 % (36.0-46.0) 08/21/19 10:40 MCV 93.1 fL (80-95) 08/21/19 10:40 MCH 31.7 pg (27.0-33.0) 08/21/19 10:40 MCHC 34.0 g/dL (32.0-36.0) 08/21/19 10:40 RDW 14.4 % (11.7-14.6) 08/21/19 10:40 Plt Count 200 x1000/uL (130-400) 08/21/19 10:40 MPV 12.3 fL (8.0-11.0) H 08/21/19 10:40 Patient ABO/Rh B Positive 08/21/19 10:40 Antibody Screen Negative 08/21/19 10:40 Procedure Note: Bedside ultrasound performed with the fetus in the ed breech presentation with vertex in the left upper quadrant. Adequate amniotic fluid and posterior fundal placenta was noted. After patient received terbutaline 0.25 mg once the breech was elevated out of the pelvis externally and in a clockwise fashion with gentle downward pressure the vertex returned to the vertex position. Heart tones before, during, and after the procedure remained normal. No evidence of contractions post procedure. Patient tolerated this procedure without difficulty. She will have a repeat nonstress test as scheduled on and plans for induction after 37 weeks gestation for cholestasis of .
== END 2019-08-21 15:20 | disposition home or self-care (01) ==
LOC: BCD 09:49 → OBS 09:49
PROVIDERS: PCP Nurse Practitioner Family; Visit Provider Obstetrics & Gynecology
DX: O32.1XX0 Maternal care for breech presentation, not applicable or unspecified (principal); Z3A.36 36 weeks gestation of pregnancy
CPT/HCPCS: 59412; 36415; 85027; 86850; 86900; 86901; 99233; G0378

== ENCOUNTER 2019-08-23 15:11 | Observation (INO) | payer OTHER, SELFPAY ==
[2019-08-23 15:43] LABS: HCT 40.8 % (36.0-46.0); HGB 14.1 g/dL (12.0-15.5); Mean Corp. HGB Concentration 34.6 g/dL (32.0-36.0); Mean Corpuscular Hemoglobin 31.8 pg (27.0-33.0); Mean Corpuscular Volume 91.9 fL (80-95); Mean Platelet Volume 12.2 fL (8.0-11.0); Platelet Count 230 x1000/uL (130-400); RBC 4.44 m/cumm (4.00-5.20); RBC Distribution Width 14.3 % (11.7-14.6); White Blood Cell Count 14.39 k/cumm (4.4-10.8)
[2019-08-23 16:09] LABS: ALT 18 U/L (14-59); AST 16 U/L (15-37); Albumin 2.6 g/dL (3.4-5.0); Alkaline Phosphatase 183 U/L (46-116); Anion Gap 10.5 mmol/L (3-11); BUN 10 mg/dL (7-18); Bilirubin, Total 0.2 mg/dL (0.2-1.0); CO2 22.5 mmol/L (21.0-32.0); CREATININE 0.75 mg/dL (0.55-1.02); Calcium 9.4 mg/dL (8.5-10.1); Chloride 103 mmol/L (98-107); Glucose 115 mg/dL (74-106); Potassium 3.6 mmol/L (3.5-5.1); Sodium 136 mmol/L (136-145); Total Protein 6.4 g/dL (6.4-8.2)
[2019-08-23 16:20] LABS: NT-proBNP 107 pg/mL (<300)
--- NOTE | 2019-08-23 16:28 | OBCE_ITS ---
Date of service: 08/23/19 Time of Service: 16:29 Assessment and Plan Assessment and plan (1) 36 weeks gestation of : Status: Acute Assessment and plan: Patient is a 39-year-old female primigravida at 36- 4/7 weeks gestation who presents with extreme fatigue and complaints of shortness of breath and chest heaviness. She had a recent breech presentation with external cephalic version performed with ease 3 days prior. She has a known diagnosis of cholestasis of and was scheduled for induction of labor at 37 weeks starting on Wednesday with an attempt for vaginal delivery. Plan is that today she will have baseline laboratory studies which have been reviewed showing only mildly elevated white blood cell count remaining studies that are pending are d-dimer and BNP. She has gone down for CT scan of the chest to rule out pulmonary embolism. She has no signs or symptoms of preeclampsia at this point she has a category 1 tracing with occasional irregular uterine contractions. Plan would be to rule out pulmonary embolism. COVID swab was obtained. May consider observation overnight with careful monitoring of her vital signs and status. (2) Cholestasis during : Status: Acute (3) HSV (herpes simplex virus) anogenital infection: Status: Acute (4) Fatigue: Status: Acute (5) Shortness of breath: Status: Acute History of Present Illness History of Present Illness Chief Complaint: Extreme fatigue and Shortness of breath Narrative: Patient called the audio technician service today with complaints of extreme fatigue and shortness of breath. She states this is been going on for approximately 2 days. She was asked to come to the hospital to be evaluated and on questioning and examination today she states that she has had approximately 2 days of extreme fatigue and some difficulty in breathing. She states that taking a shower causes extreme fatigue as well. She denies chest pain though describes some chest pressure and heaviness. She denies fevers or chills, na usea or vomiting. She states that she has been mostly in bed for the past couple of days. As of note Wednesday she had was here at the hospital for an external cephalic version due to breech presentation at 36 weeks and 3 days. Version was performed by myself and Rob Deluca with ease. Post external cephalic version she was discharged to home in stable condition with heart rate in the 140s and no contractions. Currently she declines any sick contacts. She states that she has been at home, in relative isolation her only recent outing was to the grocery store approximately 4 days prior. Consults Consult date: 08/23/19 Review of Systems All systems reviewed & are unremarkable except as noted in HPI and below Constitutional Constitutional: Reports difficulty sleeping, Reports fatigue and Reports lethargy Eyes Eyes: Reports system reviewed and no additional complaints, except as documented ENT Ears, Nose, Mouth, and Throat: Reports system reviewed and no additional complaints, except as documented Cardiovascular Cardiovascular: Reports dyspnea and Reports dyspnea on exertion Comments: She states that she occasionally feels a rapid heart rate but this is not consistent Respiratory Respiratory: Denies chest congestion, Denies cough, Reports dyspnea and Reports dyspnea on exertion Comments: States that she has difficulty breathing through her nose Gastrointestinal Gastrointestinal: Reports system reviewed and no additional complaints, except as documented Genitourinary Genitourinary: Reports system reviewed and no additional complaints, except as documented Musculoskeletal Musculoskeletal: Reports as per HPI Comments: She denies calf tenderness or significant lower extremity edema Integumentary/Breasts Skin/Breast: Reports system reviewed and no additional complaints, except as documented Neurologic Neurologic: Reports system reviewed and no additional complaints, except as documented Psychiatric Psychiatric: Reports system reviewed and no additional complaints, except as documented Endocrine Endocrine: Reports fatigue [facility] Medical History ADHD (Chronic) Vyvanse prior to Anxiety (Chronic) Took lorazepam prior to Cholestasis during , antepartum (Acute) 06/29/2019. Uticaria with bile acid elevation at 13. Rx for Actigall. Plan repeat bile acids in 1 week. Chronic GERD (Acute) Family history of thyroid disease (Acute) Fibroid (Inactive) HPV test positive (Acute) HSV (herpes simplex virus) anogenital infection (Acute) Very ill with primary outbreak, seen in ED 10/2017. 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 Family History (Updated 02/20/19 @ 13:10 by Clair Harry CNM) Mother Thyroid disorder hypothyroid Father COPD (chronic obstructive pulmonary disease) Sister Thyroid disorder hypothyroid Maternal Grandfather Heart disease Social History (Updated 02/20/19 @ 13:15 by Clair Harry CNM) Smoking/Tobacco Use Status: Never Alcohol Intake: never Drug use: Never Substance use type: does not use Adopted: No Household members: other Details: dog Do you feel safe at home: Yes Do you feel safe in your relationship?: Yes History History 1 Para 0 Hx # Term Pregnancies 0 Multiple births 0 Hx # Pregnancies 0 Ectopic pregnancies 0 AB induced 0 Hx Number of Living Children 0 AB spontaneous 0 Exam Narrative Exam Narrative: In general the patient is alert and oriented. She is a good historian Const General: cooperative, no acute distress, well groomed, not anxious, not diaphoretic, ill appearing and well hydrated Nutritional Appearance: average body habitus and well nourished Orientation: alert and oriented x3 HENMT Head: normal to inspection Mouth: oral mucosae normal and lip normal Eyes Eyelids: eyelids normal Conjunctivae: conjunctivae normal Sclera: sclerae normal Resp Effort & Inspection: normal respiratory effort, nasal flaring and other (Open mouth breathing) Auscultation: clear to auscultation bilaterally, no crackles, no rales, no rhonchi and no wheezes Cardio Palpation: normal PMI Rate: regular rate Rhythm: regular rhythm and abnormal rhythm Heart Sounds: S1 normal and S2 normal GI Palpation: soft, not firm and no guarding Other: Term gravid abdomen with presentation Vertex by Himanshu's Skin General skin exam: no rashes or lesions noted Other: General pallor Neuro General: patient alert and patient oriented x3 Extrem General: normal to inspection and no calf tenderness Right lower extremity: edema (Scant nonpitting edema present B/L) Results Labs Result diagrams: 08/23/19 15:28 08/23/19 15:28 Labs: Laboratory Results - last 24 hr 08/23/19 08/23/19 08/23/19 15:28 15:28 15:28 WBC 14.39 H RBC 4.44 Hgb 14.1 Hct 40.8 MCV 91.9 MCH 31.8 MCHC 34.6 RDW 14.3 Plt Count 230 MPV 12.2 H Sodium 136 Potassium 3.6 Chloride 103 Carbon Dioxide 22.5 Anion Gap 10.5 BUN 10 Creatinine 0.75 Estimated GFR/1.73 m2 >= 60.00 Glucose 115 H Calcium 9.4 Total Bilirubin 0.2 AST 16 ALT 18 Alkaline Phosphatase 183 H NT-Pro-B Natriuret Pep 107 Total Protein 6.4 Albumin 2.6 L
[2019-08-23] MEDS: Normal Saline - Diluent 50 ML VIAL IV (16:30)
--- NOTE | 2019-08-23 16:30 | DI.CT_ITS ---
EXAM: CT CHEST PE CTA CLINICAL HISTORY: SOB TECHNIQUE: COMPARISON: CT ABD PELVIS WITH CONTRAST from 10/20/2017 FINDINGS: CT angiography of the chest was performed with intravenous infusion of 70 cc of Omnipaque 350. The lungs are clear. No pleural effusion. Tracheobronchial tree appears intact. No evidence of pulmonary embolic disease. Thoracic aorta is of normal, no thoracic aortic aneurysm o r dissection, major branch vessels appear intact. No mediastinal or hilar adenopathy. Images obtained through the upper abdomen show unremarkable appearance of the visualized portions of the liver, spleen, pancreas, adrenals, and kidneys. IMPRESSION: Negative CT angiogram of the chest. No evidence of pulmonary embolic disease.
[2019-08-23] MEDS: Omnipaque 350 MG/ML 100 ML BTL IJ (16:31)
[2019-08-23 16:38] LABS: D-Dimer 1820 ng/mlFEU (<500)
--- NOTE | 2019-08-23 16:40 | DI.VRAD_ITS ---
PROCEDURE INFORMATION: Exam: CT Angiography Chest With Contrast Exam date and time: 08/23/2019 4:21 PM Age: 39 years old Clinical indication: Shortness of breath; Patient HX: Patient is 37 weeks . SOB x2 days. TECHNIQUE: Imaging protocol: Computed tomographic angiography of the chest with intravenous contrast. 3D rendering: MIP and/or 3D reconstructed images were created by the technologist. Radiation optimization: All CT scans at this facility use at least one of these dose optimization techniques: automated exposure control; mA and/or kV adjustment per patient size (includes targeted exams where dose is matched to clinical indication); or iterative reconstruction. Contrast material: OMNIPAQUE 350; Contrast volume: 70 ml; Contrast route: IV; COMPARISON: No relevant prior studies available. FINDINGS: Pulmonary arteries: Normal. No pulmonary emboli. Aorta: Unremarkable. No aortic aneurysm. No aortic dissection. Lungs: Unremarkable. No consolidation. No masses. Pleural space: Minimal bilateral pleural effusions. Heart: Unremarkable. No cardiomegaly. No pericardial effusion. Lymph nodes: Unremarkable. No enlarged lymph nodes. Bones/joints: Unremarkable. No acute fracture. Soft tissues: Unremarkable. IMPRESSION: Minimal bilateral pleural effusions. No pulmonary embolism Dictated and Authenticated by: Myron Antoine MD. Ordering:VU Farris MD
[2019-08-24 08:12] LABS: COVID-19 RT-PCR UVMMC Result Negative (Negative)
== END 2019-08-23 17:38 | disposition home or self-care (01) ==
LOC: OBS 15:32
PROVIDERS: Admitting Provider Advanced Practice Midwife; PCP Nurse Practitioner Family; Visit Provider Advanced Practice Midwife
DX: R53.83 Other fatigue (principal); R06.02 Shortness of breath; O26.893 Other specified pregnancy related conditions, third trimester; O26.613 Liver and biliary tract disorders in pregnancy, third trimester; K83.1 Obstruction of bile duct; O98.313 Other infections with a predominantly sexual mode of transmission complicating pregnancy, third trimester; Z3A.36 36 weeks gestation of pregnancy; Z11.59 Encounter for screening for other viral diseases
CPT/HCPCS: 71275; 80053; 85027; 86850; 86900; 86901; 99254; U0003; 59025; 83880; 85379; G0378; J3490

== ENCOUNTER 2019-08-27 15:50 | Inpatient (IN) | payer OTHER, SELFPAY ==
[2019-08-27] MEDS: miSOPROStol 25 MCG TAB PO ×2 (18:11→22:11)
[2019-08-27 18:56] LABS: HCT 42.6 % (36.0-46.0); HGB 14.6 g/dL (12.0-15.5); Mean Corp. HGB Concentration 34.3 g/dL (32.0-36.0); Mean Corpuscular Hemoglobin 31.5 pg (27.0-33.0); Mean Platelet Volume 12.1 fL (8.0-11.0); Platelet Count 218 x1000/uL (130-400); RBC 4.63 m/cumm (4.00-5.20); RBC Distribution Width 14.2 % (11.7-14.6)
[2019-08-27] MEDS: Zolpidem 5 MG TAB 10 MG PO (22:10)
[2019-08-28] MEDS: miSOPROStol 25 MCG TAB PO (02:36)
[2019-08-28] MEDS: miSOPROStol 50 MCG TAB PO ×2 (08:14→12:44)
[2019-08-28] MEDS: Lactated Ringers 1,000 ML 125 ML IV ×2 (13:46→23:56)
[2019-08-28] MEDS: Penicillin G POT. 5,000,000 UNITS in Normal Saline 100 ML 200 UNITS IVPB (13:47)
[2019-08-28] MEDS: Oxytocin/Normal Saline 30 UNITS/500 ML BAG IV (16:53)
[2019-08-28] MEDS: Penicillin G POT. 3,000,000 UNITS in Normal Saline 50 ML 100 UNITS IVPB ×2 (18:08→22:01)
[2019-08-29] MEDS: Fluconazole 100 MG TAB 150 MG PO (00:09)
[2019-08-29] MEDS: Zolpidem 5 MG TAB PO (00:13)
[2019-08-29] MEDS: Penicillin G POT. 3,000,000 UNITS in Normal Saline 50 ML 100 UNITS IVPB ×4 (02:06→13:40)
[2019-08-29] MEDS: valACYclovir 500 MG TAB PO (07:42)
[2019-08-29] MEDS: Pantoprazole 20 MG TABCR PO (07:43)
[2019-08-29] MEDS: Oxytocin/Normal Saline 30 UNITS/500 ML BAG IV (07:44)
[2019-08-29] MEDS: Lactated Ringers 1,000 ML 125 ML IV ×3 (08:59→18:40)
[2019-08-29] MEDS: Terbutaline 1 MG/ML VIAL 0.25 MG SC (17:43)
--- NOTE | 2019-08-29 17:48 | W.PM.OP ---
Date of service: 08/29/19 Time of Service: 20:10 Operative Note Operative Note DATE OF PROCEDURE: 08/29/19 PRE-OP DIAGNOSIS: 1. 37 weeks. Non reassuring heart tones following IOL 2. Intrahepatic cholestasis POST-OP DIAGNOSIS: same PROCEDURE: Primary low transverse section SURGEON: Naif Black ASSISTING SURGEON: Kaleigh Fallon ANESTHESIA: spinal ESTIMATED BLOOD LOSS: 1,200 PATHOLOGY: none sent COMPLICATIONS: None Patient was transported to: PACU Patient's condition: stable Findings: 1. Del LBM, OP position 2. Significant uterine atony IV Pitocin 0.2 mg IM Methergine x 1 250 mg IM Hemeabate x 2 10 units Intrauterine pitocin 1000 mcg Cytotec HI 1000 mg Tranexamic Acid x 2 Procedure Description: Patient was taken to the operating room and after adequate spinal anesthesia was obtained the patient was placed in supine position with a left lateral tilt. The patient was prepped draped in usual sterile manner Pfannenstiel incision was made with #10 scalpel and sharp dissection was carried down to the underlying layer of fascia. The fascia was incised in line with the incision was carried laterally in either direction with Patricia scissors. The superior and inferior aspects of the fascial incision were dissected off the underlying layer rectus muscles using both blunt and sharp dissection. The rectus were divided along the linea alba with blunt and sharp dissection. The peritoneum was entered sharply and the incision was extended superiorly and inferiorly with the Bovie cautery. The Erasmo retractor was placed with good visualization of the uterus. The vesicouterine flap was tented up with pickups incised with Metzenbaum scissors and the incision was carried laterally in either direction with the Metzenbaum scissors. The lower uterine segment was incised and transfer made with a scalpel and the incision carried laterally in a direction via stretch. Infant was found in cephalic presentation delivered atraumatically. Mouth and nose were suctioned. The cord was clamped and cut and the was handed off to the awaiting bending machine set up operator. The hysterotomy was closed with a running lock stitch of #1 chromic. A second imbricating layer of #1 chromic in a Lambert stitch was used to complete the hysterotomy repair. Significant uterine atony was noted. 10 units of intrauterine Pitocin was administered.. The patient was also given 0.2 mg of IM Methergine at this point. 250 mcg of IM Hemabate was also administered. Uterine atony persisted. After 15 minutes the patient was given a second dose of IM Hemabate. A B. Hess suture of #1 chromic was used starting from the lower uterine segment taken deep to the hysterotomy and then over the fundus to the posterior uterine wall and then reverse course back to the anterior uterus. This was tied at the level of the hysterotomy. The uterus was compressed to a well contracted position with a B. Hess stitch. The uterus was returned to the abdomen. The peritoneum was closed with running stitch of 2-0 Vicryl. The subfascial space was thoroughly inspected and was noted to be hemostatic. Eyes were closed with a running stitch of 0 Vicryl. Subcutaneous tissues were closed with interrupted sutures of 3-0 Vicryl and skin was closed with running subcuticular stitch of 4 Monocryl. Dermabond was applied. The procedure was concluded at this point. Sponge, lap and instrument counts were correct at the conclusion of the procedure. The patient was transferred to PACU stable condition.
--- NOTE | 2019-08-29 17:48 | W.PM.PROGNOT ---
Date of Service Date of service: 08/29/19 Time of Service: 17:49 Assessment and Plan Assessment and plan (1) Non-reassuring electronic monitoring tracing: Status: Acute Assessment and plan: Plan to proceed with primary section. Risks of surgery including hemorrhage, infection and injury to other organs such as bowel and bladder were discussed. We discussed the increased risk of hemorrhage secondary to a long induction of labor. All questions were answered to the patient's satisfaction and consent for surgery was obtained. (2) Cholestasis during : Status: Acute Subjective Subjective Interval history since last seen: Called to bedside to evaluate the patient. The tracing did display recurrent late decelerations with every contraction. Variability is moderate. The patient does not have an epidural and on exam was completely dilated and 0 station with caput. Pelvimetry on exam seemed narrow. The patient was counseled on options for management. She is not a candidate for operative vaginal delivery due to high station. The patient elects to proceed with primary section. Objective Objective Clinical Data: Intake & Output 08/28/19 08/29/19 08/29/19 23:59 11:59 23:59 Intake Total 1200 / 1200 1179.7 / 1179.7 Balance 1200 / 1200 1179.7 / 1179.7 Intake: IV 1200 / 1200 1179.7 / 1179.7 Laboratory Results WBC 13.70 k/cumm (4.4-10.8) H 08/27/19 18:23 RBC 4.63 m/cumm (4.00-5.20) 08/27/19 18:23 Hgb 14.6 g/dL (12.0-15.5) 08/27/19 18:23 Hct 42.6 % (36.0-46.0) 08/27/19 18:23 MCV 92.0 fL (80-95) 08/27/19 18:23 MCH 31.5 pg (27.0-33.0) 08/27/19 18:23 MCHC 34.3 g/dL (32.0-36.0) 08/27/19 18:23 RDW 14.2 % (11.7-14.6) 08/27/19 18:23 Plt Count 218 x1000/uL (130-400) 08/27/19 18:23 MPV 12.1 fL (8.0-11.0) H 08/27/19 18:23 Patient ABO/Rh B Positive 08/27/19 18:23 Antibody Screen Negative 08/27/19 18:23
[2019-08-29] MEDS: Sodium Citrate 30 ML CUP PO (17:49)
[2019-08-29] MEDS: ceFAZolin 2 GM/50 ML BAG 100 GM (17:50)
[2019-08-29] MEDS: AZITHROMYCIN 500 MG in Normal Saline 250 ML 250 MG IVPB (18:12)
[2019-08-29] MEDS: Methylergonovine 0.2 MG/ML VIAL (18:34)
[2019-08-29] MEDS: Tranexamic Acid 1,000 MG/10 ML VIAL 1000 MG ×2 (18:45→19:25)
[2019-08-29] MEDS: Carboprost 250 MCG/ML AMP ×2 (18:59→19:25)
[2019-08-29] MEDS: miSOPROStol 200 MCG TAB (19:32)
[2019-08-29 19:40] VITALS: BP 88/66; PULSE 64; RESP 14; TEMP 36.2; O2SAT 98
[2019-08-29 19:45] VITALS: BP 94/63; PULSE 70; RESP 15; TEMP 36.2; O2SAT 99
[2019-08-29 19:50] VITALS: BP 98/58; PULSE 73; RESP 14; TEMP 36.2; O2SAT 99
[2019-08-29 19:51] LABS: Abs Immature Grans 0.14 k/cumm (0.0-0.09); Absolute Eosinophil Count 0.03 k/cumm (0.0-0.7); Absolute Lymphocyte Count 1.62 k/cumm (1.2-3.4); Absolute Monocyte Count 1.27 k/cumm (0.11-0.7); Basophils % 0.1; Eosinophils % 0.1; HCT 38.4 % (36.0-46.0); HGB 13.2 g/dL (12.0-15.5); Immature Grans % 0.6 %; Lymphocytes % 6.4; Mean Corp. HGB Concentration 34.4 g/dL (32.0-36.0); Mean Corpuscular Hemoglobin 32.1 pg (27.0-33.0); Mean Corpuscular Volume 93.4 fL (80-95); Mean Platelet Volume 12.1 fL (8.0-11.0); Neutrophils % 87.8; Platelet Count 185 x1000/uL (130-400); RBC 4.11 m/cumm (4.00-5.20); RBC Distribution Width 14.2 % (11.7-14.6)
[2019-08-29 19:55] VITALS: BP 98/66; PULSE 71; RESP 11; TEMP 36.2; O2SAT 99
[2019-08-29 19:58] LABS: Absolute Basophil Count 0.03 k/cumm (0.0-0.2); Absolute Neutrophil Count 22.28 k/cumm (1.2-6.7)
[2019-08-29 19:59] LABS: Prothrombin Time 9.9 sec (9.3-11.0)
[2019-08-29 20:09] VITALS: BP 101/76; PULSE 72; RESP 15; TEMP 36.2; O2SAT 100
[2019-08-29 20:19] LABS: Diff Comment Diff Reviewed; RBC Morphology Normal
[2019-08-29 20:28] LABS: White Blood Cell Count 25.38 k/cumm (4.4-10.8)
[2019-08-30] MEDS: oxyCODONE 5 mg/Acetaminophen 325 mg TAB PO ×3 (04:35→19:15)
[2019-08-30 06:58] LABS: HCT 34.8 % (36.0-46.0); HGB 12.1 g/dL (12.0-15.5); Mean Corp. HGB Concentration 34.8 g/dL (32.0-36.0); Mean Corpuscular Hemoglobin 31.8 pg (27.0-33.0); Mean Corpuscular Volume 91.6 fL (80-95); Mean Platelet Volume 11.9 fL (8.0-11.0); Platelet Count 195 x1000/uL (130-400); RBC Distribution Width 13.7 % (11.7-14.6)
[2019-08-30 07:07] LABS: White Blood Cell Count 26.06 k/cumm (4.4-10.8)
[2019-08-30 08:25] LABS: Fibrinogen (Stat) (Littleton) 484 mg/dL (208-434)
[2019-08-30] MEDS: valACYclovir 500 MG TAB PO (08:29)
[2019-08-30] MEDS: Pantoprazole 20 MG TABCR PO (08:29)
[2019-08-30] MEDS: Acetaminophen 325 MG TAB 650 MG PO ×2 (09:56→22:39)
[2019-08-31] MEDS: oxyCODONE 5 mg/Acetaminophen 325 mg TAB PO ×3 (00:33→20:39)
--- NOTE | 2019-08-31 07:17 | W.PM.PROGNOT ---
Date of Service Date of service: 08/31/19 Time of Service: 07:18 Assessment and Plan Assessment and plan (1) S/P section: Status: Acute Assessment and plan: Doing well. Making satisfactory postoperative progress. Plan for discharge home tomorrow. (2) Uterine atony, , current hospitalization: Status: Acute Subjective Subjective Interval history since last seen: Doing well. Pain well controlled Ambulatory. Tolerating regular diet. Mimimal lochia. Objective Objective Clinical Data: Abnormal lab results 08/27/19 08/29/19 Range/Units 18:23 19:30 Fibrinogen 484 H (208-434) mg/dL Crossmatch See Detail Vital Signs Temperature 97.2 F L 08/29/19 20:09 Pulse 72 08/29/19 20:09 Respiratory Rate 15 08/29/19 20:09 Blood Pressure 101/76 08/29/19 20:09 Pulse Oximetry 100 08/29/19 20:09 Oxygen Delivery Method Room Air 08/29/19 20:09 Pain Level 7 08/31/19 00:33 Intake & Output 08/30/19 08/30/19 08/31/19 11:59 23:59 11:59 Intake Total 400 / 400 Balance 400 / 400 Intake: IV 400 / 400 Laboratory Results WBC 26.06 k/cumm (4.4-10.8) H* 08/30/19 06:46 RBC 3.80 m/cumm (4.00-5.20) L 08/30/19 06:46 Hgb 12.1 g/dL (12.0-15.5) 08/30/19 06:46 Hct 34.8 % (36.0-46.0) L 08/30/19 06:46 MCV 91.6 fL (80-95) 08/30/19 06:46 MCH 31.8 pg (27.0-33.0) 08/30/19 06:46 MCHC 34.8 g/dL (32.0-36.0) 08/30/19 06:46 RDW 13.7 % (11.7-14.6) 08/30/19 06:46 Plt Count 195 x1000/uL (130-400) 08/30/19 06:46 MPV 11.9 fL (8.0-11.0) H 08/30/19 06:46 Immature Gran % 0.6 % 08/29/19 19:30 Neutrophils % 87.8 08/29/19 19:30 Lymphocytes % 6.4 08/29/19 19:30 Monocytes % 5.0 08/29/19 19:30 Eosinophils % 0.1 08/29/19 19:30 Basophils % 0.1 08/29/19 19:30 Absolute Neutrophils 22.28 k/cumm (1.2-6.7) H 08/29/19 19:30 Absolute Lymphocytes 1.62 k/cumm (1.2-3.4) 08/29/19 19:30 Absolute Monocytes 1.27 k/cumm (0.11-0.7) H 08/29/19 19:30 Absolute Eosinophils 0.03 k/cumm (0.0-0.7) 08/29/19 19:30 Absolute Basophils 0.03 k/cumm (0.0-0.2) 08/29/19 19:30 Differential Comment Diff reviewed 08/29/19 19:30 RBC Morphology Normal 08/29/19 19:30 PT 9.9 sec (9.3-11.0) 08/29/19 19:30 INR 1.0 (0.9-1.1) 08/29/19 19:30 Fibrinogen 484 mg/dL (208-434) H 08/29/19 19:30 Patient ABO/Rh B Positive 08/27/19 18:23 Antibody Screen Negative 08/27/19 18:23 Crossmatch See Detail 08/27/19 18:23
[2019-08-31] MEDS: Pantoprazole 20 MG TABCR PO (08:47)
[2019-08-31] MEDS: valACYclovir 500 MG TAB PO (08:49)
[2019-08-31] MEDS: Acetaminophen 325 MG TAB 650 MG PO ×3 (14:27→22:15)
[2019-08-31] MEDS: Docusate Sodium 100 MG CAP PO (18:14)
[2019-09-01] MEDS: oxyCODONE 5 mg/Acetaminophen 325 mg TAB PO ×3 (02:00→13:16)
[2019-09-01] MEDS: Docusate Sodium 100 MG CAP PO (08:11)
--- NOTE | 2019-09-01 08:49 | DSE_ITS ---
Date of service: 09/01/19 Time of Service: 08:49 DS: Diagnosis Discharge Diagnosis (1) S/P section: Status: Acute (2) Uterine atony, , current hospitalization: Status: Acute (3) Cholestasis during : Status: Acute Discharge Plan Disposition Patient Disposition: HOME Condition: Improving Discharge Details Reason For Visit: INDUCTION OF LABOR, primary LTCS at 37-2/7 w EGA Admit Date/Time: 08/27/19 15:50 Admit Provider: Rob Washburn Attending Provider: Naif Black Primary Care Provider: Gregor Farley Hospital Course Hospital Course: Patientis a 39-year-old G1 now P1 female admitted at 37 weeks EGA for induction of labor secondary to cholestasis of . heart rate monitoring was nonreassuring when the patient was completely dilated 0 station with caput. Proceed with a primary low transverse delivery. Intrapartum blood loss 1200 cc secondary to uterine atony which responded to medical management and a B-Hess suture. She did not require transfusion and her hemoglobin was 12.1 at the time of discharge. She was discharged home successfully breast-feeding her male who will possibly be named Joby. Plan is to have her follow-up with Dr. Black in 2 weeks and the CNM service in 6 weeks. Should be given a prescription for Percocet and encouraged to use Motrin and [id number] Tylenol for pain. Home Meds and New Rx's Prescriptions: No Action hydroxyzine HCl 25 mg tablet 25 mg PO QHS Qty: 30 RF: 1 prenat.vits,kizzy,krq-[id number] Tablet 1 tab PO DAILY RF: 0 pantoprazole [Protonix] 20 mg tablet,delayed release (DR/EC) 20 mg PO DAILY Qty: 30 RF: 6 ursodiol 500 mg tablet 500 mg PO BID Qty: 60 RF: 4 valacyclovir [Valtrex] 500 mg tablet 500 mg PO DAILY Qty: 30 RF: 0 zolpidem [Ambien] 5 mg tablet 5 mg PO QHS PRN (Reason: sleep) Qty: 6 RF: 0 aspirin [Aspirin Low Dose] 81 mg Tablet,Delayed Release (Dr/Ec) 81 mg PO DAILY RF: 0 Discharge Instructions Stand Alone Forms: BC Instructions, BC Discharge Instruc Activity:: Activity as Tolerated Equipment/Supplies:: No Equipment Needed Diet:: As Tolerated Discharge Orders Discharge Orders: Discharge Order (Routine); Ordered 09/01/19 Ordered By: Roxie Duran DS: Summary Status at Discharge Functional status at discharge: independent ambulation Overall status at discharge: patient is progressing back to baseline Mental Status: mental status grossly normal Speech and Movement: speech and movement normal Mood: congruent mood Affect: normal affect Exam Const General: no acute distress Nutritional Appearance: average body habitus Orientation: alert, awake and oriented x3 Chest Chest: normal inspection of the chest and other (Breasts enlarged, no nipple excoriation.) Resp Effort & Inspection: normal respiratory effort Auscultation: clear to auscultation bilaterally GI Inspection: scar (Pfannenstiel skin incision clean dry and intact.) Palpation: soft, nontender and other Other: Fundus firm at U/2 Skin General skin exam: no rashes or lesions noted Extrem General: normal to inspection, full ROM and no clubbing, cyanosis or edema Psych Appearance: grossly normal Mental Status: mental status grossly normal Speech and Movement: speech and movement normal Mood: congruent mood Affect: normal affect DS: Data Vitals/I&O Vitals and I&O: Vital Signs Temperature 97.2 F L 08/29/19 20:09 Pulse 72 08/29/19 20:09 Respiratory Rate 15 08/29/19 20:09 Blood Pressure 101/76 08/29/19 20:09 Pulse Oximetry 100 08/29/19 20:09 Oxygen Delivery Method Room Air 08/29/19 20:09 Pain Level 6 09/01/19 08:10 [facility] Surgical History (Updated 09/01/19 @ 09:38 by Roxie Duran MD) S/P section (Acute) 08/2019. Nonreassuring heart tracing remote from delivery after IOL at 37 weeks EGA for cholestasis of Family History (Updated 02/20/19 @ 13:10 by Clair Harry CNM) Mother Thyroid disorder hypothyroid Father COPD (chronic obstructive pulmonary disease) Sister Thyroid disorder hypothyroid Maternal Grandfather Heart disease Social History (Updated 02/20/19 @ 13:15 by Clair Harry CNM) Smoking/Tobacco Use Status: Never Alcohol Intake: never Drug use: Never Substance use type: does not use Adopted: No Household members: other Details: dog Do you feel safe at home: Yes Do you feel safe in your relationship?: Yes History History 1 Para 1 Hx # Term Pregnancies 1 Multiple births 0 Hx # Pregnancies 0 Ectopic pregnancies 0 AB induced 0 Hx Number of Living Children 1 AB spontaneous 0
== END 2019-09-01 12:45 | disposition home or self-care (01) | DRG 786 ==
PROVIDERS: Nurse Anesthetist, Certified Registered; Admitting Provider Advanced Practice Midwife; PCP Nurse Practitioner Family; Visit Provider Obstetrics & Gynecology
PROC: 10D00Z1 Extraction of Products of Conception, Low, Open Approach (ICD-10-PCS; CPT 59514; principal; 2019-08-29 17:55)
DX: O26.62 Liver and biliary tract disorders in childbirth (principal); K83.1 Obstruction of bile duct; O98.32 Other infections with a predominantly sexual mode of transmission complicating childbirth; O72.1 Other immediate postpartum hemorrhage; Z37.0 Single live birth; O76 Abnormality in fetal heart rate and rhythm complicating labor and delivery; Z3A.37 37 weeks gestation of pregnancy; O99.344 Other mental disorders complicating childbirth; O99.824 Streptococcus B carrier state complicating childbirth; O99.62 Diseases of the digestive system complicating childbirth; F41.9 Anxiety disorder, unspecified; Z79.82 Long term (current) use of aspirin; K21.9 Gastro-esophageal reflux disease without esophagitis; F90.9 Attention-deficit hyperactivity disorder, unspecified type
CPT/HCPCS: 59514; 36415; 85027; 85384; 86850; 86900; 86901; 86920; 99233; NC; 85025; 85610; J0456; J0595; J0690; J1100; J2210; J2250; J2370; J2405; J2540; J2590; J3010; J3490

== ENCOUNTER 2019-10-18 01:49 | Outpatient (CLI) | payer OTHER, SELFPAY ==
--- NOTE | 2019-10-18 06:45 | DI.US_ITS ---
EXAM: US PELVIS TRANSVAGINAL CLINICAL HISTORY: S/P B-patino procedure. Difficult to sound for IUD,Z39.2, F/U TECHNIQUE: Transabdominal and transvaginal imaging was performed using standard protocol. COMPARISON: CT ABD PELVIS WITH CONTRAST from 10/20/2017 FINDINGS: KIDNEYS: Kidneys are symmetric in size. No evidence of renal calculi. No evidence of hydronephrosis. No renal mass or cyst identified. UTERUS: Anteverted. 8.1 x 3.1 x 5.5 cm. Endometrium: Heterogeneous with areas of shadowing.. 11 millimeters in thickness. No IUD is identif ied. Myometrium: 2.6 x 1.4 x 2.3 centimeter fundal fibroid. Cervix: Unremarkable. OVARIES: Right: Cyst or mass: 1.9 centimeter dominant follicle. Left: Cyst or mass: None. DOPPLER: Color: Symmetric and uniform flow to both ovaries. No hyperemia. Duplex: Normal ovarian arterial waveforms visualized. CUL-DE-SAC: Free fluid: None. IMPRESSION: 1. Heterogeneous endometrium. Small fundal fibroid.. 2. Unremarkable bilateral ovaries. DATA REPOSITORY:
== END 2019-10-18 02:09 ==
PROVIDERS: PCP Nurse Practitioner Family; Visit Provider Advanced Practice Midwife
DX: Z39.2 Encounter for routine postpartum follow-up (principal); D25.9 Leiomyoma of uterus, unspecified
CPT/HCPCS: 76830; 76856

== ENCOUNTER 2020-01-26 11:48 | Outpatient (REF) | payer OTHER, SELFPAY ==
[2020-01-26 19:42] LABS: HCT 45.2 % (36.0-46.0); HGB 15.4 g/dL (11.2-15.7); MCH 30.9 pg (27.0-33.0); MCHC 34.1 % (32.0-36.0); MCV 90.8 fL (80-95); MPV 10.5 fL (8.0-11.0); Platelet Count 339 10^3/uL (130-400); RBC 4.98 10^6/uL (3.93-5.22); RDW 13.3 % (11.7-14.6); RDW-SD 44.9 fL; WBC 11.88 10^3/uL (4.4-10.8)
[2020-01-26 19:48] LABS: ALT 17 U/L (14-59); AST 17 U/L (15-37); Albumin 4.4 g/dL (3.4-5.0); Alkaline Phosphatase 102 U/L (46-116); Anion Gap 10.8 mmol/L (3-11); BUN 9 mg/dL (7-18); Bilirubin, Total 0.6 mg/dL (0.2-1.0); CO2 27.2 mmol/L (21.0-32.0); CREATININE 0.72 mg/dL (0.55-1.02); Calcium 9.6 mg/dL (8.5-10.1); Chloride 102 mmol/L (98-107); Glucose 94 mg/dL (74-106); Potassium 3.6 mmol/L (3.5-5.1); Sodium 140 mmol/L (136-145); Total Protein 7.5 g/dL (6.4-8.2)
== END 2020-01-26 12:08 ==
LOC: NCHCN 11:48
PROVIDERS: PCP Nurse Practitioner Family; Visit Provider Nurse Practitioner Family
DX: Z00.00 Encounter for general adult medical examination without abnormal findings (principal)
CPT/HCPCS: 80053; 85027